=== PATIENT | female | born 1965 | race Hispanic/Latino ===

== ENCOUNTER 2020-02-02 20:21 | Emergency (ER) | payer SELFPAY ==
--- NOTE | 2020-02-02 21:06 | RAD ---
EXAM DESCRIPTION: Chest,1 View CLINICAL HISTORY: 54 years Female, chest pain COMPARISON: None TECHNIQUE: Single AP chest radiograph. FINDINGS: Clear lungs. No pneumothorax or pleural effusion. Normal cardiomediastinal contour. Normal osseous structures. IMPRESSION: 1. No acute cardiopulmonary process. Electronically signed by: Keon Alford MD 02/02/2020 9:04 PM CDT
--- NOTE | 2020-02-02 21:34 | ED.PDOC ---
History of Present Illness - General Chief Complaint: Chest Pain/AR Stated Complaint: Chest pain for the last 2 weeks intermittently Time Seen by Provider: 02/02/20 20:26 Additional Information: The patient is a 54-year-old female presents emergency department complaints of chest pain for the last 2 weeks. She states that she has had intermittent sharp left-sided chest pain for the last 2 weeks. States that she has seen a primary care physician for the same complaints. She states that she does have shortness of breath when it happens at the time of my evaluation she said that she has been completely resolvedDiabetic reoccurs intermittently. She denies any nausea or vomiting. She complains of generalized weakness. She denies any cardiovascular disease. Denies any hypertension denies any history of heart attacks denies history of heart failure - History of Present Illness Timing/Duration: intermittent, other - 2 weeks Severity: mild Location: substernal Activities at Onset: none Prior Chest Pain/Cardiac Workup: non-cardiac Improving Factors: nothing Worsening Factors: nothing Nitro Today/Relief: no nitro taken today Aspirin Treatment Today: no aspirin today Associated Symptoms: denies symptoms, other - States that she has shortness of breath when he is actively having but at time of my evaluation she states that she does not have any because she is currently not having any pain Allergies/Adverse Reactions: Allergies NO KNOWN ALLERGY Allergy (Verified 02/02/20 20:37) Review of Systems - Review of Systems Constitutional: Denies: chills, fever EENTM: Denies: eye pain, blurred vision, tearing Respiratory: Denies: cough, short of breath Cardiology: States: chest pain, other - Chest pain now resolved. Denies: palpitations Gastrointestinal/Abdominal: Denies: see HPI, abdominal pain Genitourinary: Denies: discharge, frequency, hematuria Musculoskeletal: Denies: see HPI, back pain, gout Skin: Denies: change in color, dryness, lesions Neurological: Denies: anxiety, depressed Endocrine: Denies: see HPI, excessive sweating, flushing Hematologic/Lymphatic: Denies: see HPI, anemia Past Medical History (General) - Patient Medical History Hx Seizures: No Hx Stroke: No Hx Dementia: No Hx Asthma: No Hx of COPD: No Hx Cardiac Disorders: No Hx Congestive Heart Failure: No Hx Pacemaker: No Hx Hypertension: No Hx Thyroid Disease: No Hx Diabetes: No Hx Gastroesophageal Reflux: No Hx Renal Disease: No Hx Cancer: No Hx of HIV: No Hx Hepatitis C: No Hx MRSA: No - Vaccination History Hx Tetanus, Diphtheria Vaccination: No Hx Influenza Vaccination: No Hx Pneumococcal Vaccination: No Immunizations Up to Date: No - Social History Hx Tobacco Use: No Hx Alcohol Use: No Hx Substance Use: No Hx Substance Use Treatment: No Hx Depression: No Family Medical History - Family History Mother Family History: Unknown Physical Exam - Physical Exam General Appearance: Alert, Well Developed Eyes, Ears, Nose, Throat Exam: pharynx normal, scleral icterus (R) Neck: non-tender, normal inspection Respiratory: chest non-tender, lungs clear Cardiovascular/Chest: normal peripheral pulses, regular rate, rhythm, no edema Peripheral Pulses: radial,right: 2+, radial,left: 2+ Gastrointestinal/Abdominal: normal bowel sounds, non tender, soft Extremity: normal range of motion, non-tender, no pedal edema Neurologic: assessment technician II-XII nml as tested, no motor/sensory deficits, alert, normal mood/affect, oriented x 3, other - NIH 0 Skin Exam: normal color Lymphatic: no adenopathy Progress - Progress Progress: 02/02/20 21:40 Discussed results and findings with the patient. Patient's cardiac work-up is negative in the setting of having chest pain for the last 2 weeks.The patient follow-up with your primary care physician 1-2 - EKG/XRAY/CT EKG: Sinus XRAY: chest - XAM DESCRIPTION: Chest,1 View CLINICAL HISTORY: 54 years Female, chest pain COMPARISON: None TECHNIQUE: Single AP chest radiograph. FINDINGS: Clear lungs. No pneumothorax or pleural effusion. Normal cardiomediastinal contour. Normal osseous structures. IMPRESSION: 1. No acute cardiopulmon - Additional EKG/XRAY/Consults Comments: Heart score of 2 Departure - Departure Clinical Impression: Chest pain, UTI (urinary tract infection) Disposition: Discharge to Home or Self Care Condition: Good Departure Forms: ED Discharge - Pt. Copy, Patient Portal Self Enrollment Instructions: DI for Chest Pain Referrals: Miryam Mckinney NP [Primary Care Provider] - 1-2 Days Comments: Please follow-up with your primary care physician in 1 to 2 days. Please complete your course of antibiotics as prescribed in the emergency department today for your urinary tract infection. Return to emergency department as needed.
[2020-02-02] MEDS ORDERED: cefTRIAXone SODIUM 1 GM in SODIUM CHL 0.9% 50ML MIN-BAG+ 50 ML IVPB ONE (21:42)
[2020-02-02 22:20] VITALS: BP 103/59; O2SAT 97
[2020-02-03 00:08] VITALS: TEMP 97.8
== END 2020-02-02 22:20 | disposition home or self-care (01) ==
LOC: ER 20:21
DX: R07.2 Precordial pain (principal); N39.0 Urinary tract infection, site not specified; R06.02 Shortness of breath
CPT/HCPCS: 36415; 71045; 80053; 81001; 84484; 85025; 93005; J0696; J7050

== ENCOUNTER → 2020-05-07 | Outpatient (CLI) | payer OTHER | LOC: YCFC.O 11:06 | PROVIDERS: ATTEND Nurse Practitioner Family | DX: Z20.828 Contact with and (suspected) exposure to other viral communicable diseases (principal) ==